=== PATIENT | male | born 1985 | race Caucasian/White ===

== ENCOUNTER 2018-12-06 17:47 | Emergency (ER) | payer OTHER, SELFPAY ==
[2018-12-06 17:50] VITALS: BP 115/71; PULSE 58; RESP 14; TEMP 36.7; O2SAT 99
[2018-12-06] MEDS: Doxycycline Hyclate 100 MG CAP 200 MG PO (18:14)
--- NOTE | 2018-12-06 18:20 | W.ED.GENAD ---
Discharge Plan Disposition Patient Disposition: HOME Condition: Good Discharge Details Chief Complaint: GenMedical Clinical Impression: Tick bite Primary Care Provider: None,None ED Provider: Laura Perry Discharge Instructions Instructions: Lyme Disease (ED), Tick Bite (ED) Additional Instructions: Observe for any signs of Lyme disease as discussed. Typical symptoms would include headache, joint pain, fatigue, fever, rashes as discussed. Return immediately for any concerns or symptoms of Lyme. You received doxycycline 200 mg tonight and attempts to prevent Lyme disease Wash area of tick bite with soap and water once or twice daily and apply topically pneumatic ointment to the wound. Recheck with primary care doctor for follow-up Lyme labs if desired in the next 4 to 6 weeks as discussed. Return sooner for any worsening or concerns Medical Decision Making Patient with tick attached trigger than 24 hours possibly 48 hours with no obvious symptoms of Lyme at this time. Will provide line prophylactic dose of 200 mg doxycycline. Patient has taken doxycycline in the past and has tolerated it without difficulty. Patient counseled regarding Lyme signs and symptoms for which he should observe closely and return for any concerns. Provided information regarding Lyme and tick bites. Patient reports his understanding. Discussed possible tick testing. Prior to discharge, my usual and customary return precautions were reviewed with the patient - this included follow-up instructions and reasons to return to the Emergency Department if conditions worsens, does not improve as expected, or other new concerns arise. HPI General Date/Time Provider Initiated Documentation: 12/06/18 17:54. HPI Narrative: Patient presents for complaints of tick bite. Patient reports tick bite on his left side of his chest which he noted yesterday. Tick attached for greater than 24 hours as [place]. Patient denies any fever, fatigue, headache, joint pain, rash. Patient reports he is feeling well. Patient is concerned as he did identify the tick as a deer tick. Related Data Allergies Allergy/AdvReac Type Severity Reaction Status Date / Time No Known Allergies Allergy Unverified 12/06/18 17:52 General Stated Complaint: GenMedical XIOMY: 5 Review of Systems Review of Systems ROS Unobtainable: All systems reviewed & are unremarkable except as noted in HPI and below Constitutional Constitutional: Denies chills, Denies fatigue, Denies fever(s), Denies headache(s), Denies malaise and Denies poor appetite ENT Ears, Nose, Mouth, and Throat: Denies headache(s) Integumentary/Breasts Skin/Breast: Denies rash Neurologic Neurologic: Denies headache(s) Endocrine Endocrine: Denies fatigue [facility] Social History Smoking/Tobacco Use Status: Never Alcohol Intake: never Do you feel safe at home: Yes Do you feel safe in your relationship?: Yes Exam Narrative Exam Narrative: CONST: Healthy appearing patient, in no acute distress. Well hydrated. Alert and alert. NECK: Normal visual inspection. FROM. Trachea midline. No Midline tenderness. CHEST: Normal insepection of the chest. Evidence of recent tick bite to left chest wall. Small less than a centimeter area of erythema noted without obvious retained tick MUSCULOSKELETAL: Normal Gait. FROM of all extremities. SKIN: Normal. Dry. No rashes. NEURO: Alert and awake. Speech clear. PSYCH: Normal affect. Cooperative. Course Vital Signs Vital signs: Vital Signs Temperature 36.7 C 12/06/18 17:50 Pulse 58 L 12/06/18 17:50 Respiratory Rate 14 12/06/18 17:50 Blood Pressure 115/71 12/06/18 17:50 Pulse Oximetry 99 12/06/18 17:50 Temperature 36.7 C 12/06/18 17:50 Pulse 58 L 12/06/18 17:50 Respiratory Rate 14 12/06/18 17:50 Respiratory Effort 12/06/18 18:14 Respiratory Depth Normal 12/06/18 18:14 Respiratory Pattern Normal 12/06/18 18:14 Blood Pressure 115/71 12/06/18 17:50 Pulse Oximetry 99 12/06/18 17:50 Oxygen Delivery Method Room Air 12/06/18 17:50 Oxygen Flow Rate 0 12/06/18 17:50 Pain Level 0 12/06/18 17:50
== END 2018-12-06 18:20 | disposition home or self-care (01) ==
PROVIDERS: Emergency Provider Physician Assistant
DX: S20.362A Insect bite (nonvenomous) of left front wall of thorax, initial encounter (principal); W57.XXXA Bitten or stung by nonvenomous insect and other nonvenomous arthropods, initial encounter
CPT/HCPCS: 99283

== ENCOUNTER 2021-07-29 19:51 | Outpatient (REF) | payer OTHER, SELFPAY | END 2021-07-29 19:52 | disposition home or self-care (01) | LOC: LBN 19:51 | PROVIDERS: Visit Provider Physician Assistant Medical ==

== ENCOUNTER → 2021-08-16 13:00 | Outpatient (CLI) | payer OTHER, SELFPAY ==
--- NOTE | 2021-08-16 | DI.US_ITS ---
Exam(s) US ABDOMEN LIMITED EXAM: US ABDOMEN LIMITED CLINICAL HISTORY: ABD PAIN R10.9, RUQ TECHNIQUE: Ultrasound abdomen performed using standard protocol. COMPARISON: No exams were available for comparison FINDINGS: PANCREAS: Normal where visualized. There is a 1 cm round anechoic area in the head of the pancreas ad jacent to the portal vein. It does not elongate. This may represent a small cyst. The pancreas is oth erwise unremarkable. LIVER: Normal. Hepatopedal flow in the Portal Vein. The liver measures in 16.6 cm length. GALLBLADDER: No evidence of cholelithiasis. No evidence of wall thickening. No pericholecystic fluid identified. BILIARY SYSTEM: Common bile duct measures < 7 mm. No intrahepatic biliary ductal dilation. SWEENEY'S SIGN: Negative. RIGHT KIDNEY: Kidney is normal in size. No evidence of renal calculi. No evidence of hydronephrosis. No renal mass or cyst identified. ASCITES: None seen. IMPRESSION: 1 cm round anechoic avascular area in the head of the pancreas. An MRI of the pancreas is recommended for further evaluation. DATA REPOSITORY:
--- NOTE | 2021-08-16 | DI.RAD_ITS ---
Exam(s) XR CHEST 2V PA LATERAL EXAM: XR CHEST 2V PA LATERAL CLINICAL HISTORY: COUGH R05.8 TECHNIQUE: 2D digital imaging was performed of the chest. Two images were obtained. PA and lateral views were obtained. COMPARISON: No exams were available for comparison FINDINGS: MEDIASTINUM: Normal. HEART: Normal. PULMONARY VASCULATURE: Normal. LUNGS: Clear. PLEURAL SPACE: No pleural effusion or pneumothorax. BONE:Within normal limits for the patient's age. OTHER FINDINGS:Normal. IMPRESSION: No acute pulmonary findings. DATA REPOSITORY: RADIATION DOSE DELIVERED:
== END ==
PROVIDERS: Visit Provider Family Medicine
DX: R05.8 Other specified cough (principal); R10.11 Right upper quadrant pain; K86.89 Other specified diseases of pancreas
CPT/HCPCS: 71046; 76705

== ENCOUNTER 2021-08-16 14:39 | Outpatient (REF) | payer OTHER, SELFPAY | END 2021-08-16 14:40 | disposition home or self-care (01) | LOC: LBN 14:39 | PROVIDERS: Visit Provider Family Medicine ==

== ENCOUNTER 2021-08-17 17:47 | Outpatient (REF) | payer OTHER, SELFPAY | END 2021-08-17 17:48 | disposition home or self-care (01) | LOC: LBN 17:47 | PROVIDERS: Visit Provider Family Medicine | DX: R05.8 Other specified cough (principal); R09.3 Abnormal sputum | CPT/HCPCS: 87070; 87205 ==

== ENCOUNTER → 2021-08-26 01:37 | Outpatient (CLI) | payer OTHER, SELFPAY ==
--- NOTE | 2021-08-26 13:00 | DI.MRI_ITS ---
Exam(s) MR ABDOMEN WO/W EXAM: MR ABDOMEN WO/W CLINICAL HISTORY: PANCREATIC LESION, K86.9 TECHNIQUE: Multiplanar multisequence MRA of the Abdomen was performed. CONTRAST MATERIAL: IV Contrast: 18 mL of Dotarem contrast administered. COMPARISON: US US ABDOMEN LIMITED from 08/16/2021 FINDINGS: Liver: Unremarkable. Pancreas: Unremarkable. There is no evidence of a pancreatic mass. Gallbladder and Bile Ducts: Unremarkable. No evidence of biliary ductal dilatation. Adrenals: Unremarkable. Kidneys: Unremarkable. Note is made of a retroaortic left renal vein. This is a normal variant. Spleen: Unremarkable. Bowel: Unremarkable. Aorta: Unremarkable. Soft Tissues: Unremarkable. Bone: Unremarkable. Lymph Nodes: Unremarkable. IMPRESSION: 1. Unremarkable MRI of the abdomen. 2. No evidence of a pancreatic mass. DATA REPOSITORY:
[2021-08-26] MEDS: Gadoterate meglumine 20 ML SYRINGE IVP (14:16)
== END ==
PROVIDERS: Visit Provider Family Medicine
DX: K86.9 Disease of pancreas, unspecified (principal)
CPT/HCPCS: 74183

== ENCOUNTER 2021-08-27 13:56 | Outpatient (REF) | payer OTHER, SELFPAY ==
[2021-08-27 15:43] LABS: Abs Immature Grans 0.03 10^3/uL (0.0-0.06); Absolute Basophil Count 0.04 10^3/uL (0.0-0.2); Absolute Lymphocyte Count 2.25 10^3/uL (1.2-3.4); Absolute Monocyte Count 0.46 10^3/uL (0.1-0.8); Absolute Neutrophil Count 3.98 10^3/uL (1.2-6.7); Basophils % 0.6; Eosinophils % 1.5; HGB 15.2 g/dL (13.5-17.5); Immature Grans % 0.4; Lymphocytes % 32.8; MCH 30.2 pg (27.0-33.0); MCHC 34.5 % (32.0-36.0); MCV 88 fL (80-95); Monocytes % 6.7; Platelet Count 228 10^3/uL (130-400); RBC 5.03 10^6/uL (4.36-5.78); RDW 11.7 % (11.8-14.1); RDW-SD 37.6 fL; WBC 6.86 10^3/uL (4.4-10.8)
[2021-08-27 16:48] LABS: ALT 35 U/L (16-63); AST 25 U/L (15-37); Albumin 4.3 g/dL (3.4-5.0); Alkaline Phosphatase 46 U/L (46-116); Anion Gap 7.1 mmol/L (3-11); BUN 24 mg/dL (7-18); Bilirubin, Total 0.6 mg/dL (0.2-1.0); CO2 28.9 mmol/L (21.0-32.0); CREATININE 0.9 mg/dL (0.70-1.30); Chloride 103 mmol/L (98-107); Glucose 91 mg/dL (74-106); Potassium 4.2 mmol/L (3.5-5.1); Sodium 139 mmol/L (136-145); Total Protein 7.1 g/dL (6.4-8.2); Vitamin B12 580 pg/mL (193-986)
[2021-08-28 11:39] LABS: Lipase 120 U/L (73-393)
[2021-08-30 11:15] LABS: Lyme Ab w Rflx to Lyme Confirm Negative (Negative)
[2021-08-31 17:07] LABS: Anaplasma phagocytophilum Negative (Negative); B. miyamotoi PCR Negative (Negative); Babesia divergens/MO-1 Negative (Negative); Babesia duncani Negative (Negative); Babesia microti Negative (Negative); Ehrlichia chaffeensis Negative (Negative); Ehrlichia ewingii/canis Negative (Negative); Ehrlichia muris eauclairensis Negative (Negative)
== END 2021-08-27 13:57 | disposition home or self-care (01) ==
LOC: LBN 13:56
PROVIDERS: Visit Provider Physician Assistant Medical
DX: R10.9 Unspecified abdominal pain (principal)
CPT/HCPCS: 80053; 83690; 87798; 82607; 84443; 85025; 86618